=== PATIENT | female | born 1945 | race Hispanic/Latino ===

== ENCOUNTER 2021-01-05 09:37 | Inpatient (IN) | payer MEDICARE, OTHER ==
[2021-01-05] MEDS ORDERED: ONDANSETRON HCL INJ 2MG/ML 2ML 2 MG/ML VIAL ONE (10:41)
[2021-01-05] MEDS ORDERED: FENTANYL CITRATE/PF 100MCG/2 ML INJ ONE (10:41)
[2021-01-05] MEDS ORDERED: CEFTRIAXONE 1 GM VIAL ONE (11:27)
[2021-01-05] MEDS ORDERED: LACTATED RINGER'S 1,000 ML ONE (11:28)
[2021-01-05 11:29] LABS: HEMOGLOBIN 12.2 g/dL (12.0-16.0)
[2021-01-05 11:30] LABS: BASOPHILS % 0.3 % (0.0-1.0); EOSINOPHILS # (AUTO) 0.1 (0.0-0.4); EOSINOPHILS % 0.8 % (0.0-6.0); HEMATOCRIT 39.2 % (34.2-44.1); LYMPHOCYTES # (AUTO) 3.1 (1.0-3.2); LYMPHOCYTES % 26.4 % (18.0-39.1); MEAN CORPUSCULAR HEMOGLOBIN 29.8 pg (28-32); MEAN CORPUSCULAR HGB CONC 31.1 g/dL (31-35); MEAN CORPUSCULAR VOLUME 95.6 fL (81-99); MONOCYTES # (AUTO) 0.9 (0.2-0.8); MONOCYTES % 7.7 % (4.4-11.3); NEUTROPHILS # (AUTO) 7.4 (2.1-6.9); NEUTROPHILS % 64.2 % (38.7-80.0); PLATELET COUNT 277 x10e3/uL (140-360); RED CELL DISTRIBUTION WIDTH 13.7 % (11.7-14.4)
[2021-01-05 11:31] LABS: ANION GAP 15.3 mmol/L (8-16); CALCIUM 8.6 mg/dL (8.4-10.2); CREATININE, SERUM 0.56 mg/dL (0.57-1.11); POTASSIUM 4.3 mmol/L (3.5-5.1)
[2021-01-05 11:59] LABS: ALBUMIN 2.7 g/dL (3.5-5.0); ALBUMIN/GLOBULIN RATIO 0.7 (0.8-2.0)
[2021-01-05] MEDS ORDERED: ASPIRIN 81 MG CHEW TAB ONE (13:57)
[2021-01-05] MEDS ORDERED: ONDANSETRON HCL INJ 2MG/ML 2ML 2 MG/ML VIAL IV PRN ×2 (15:00→20:15)
[2021-01-05] MEDS: SODIUM CHLORIDE 0.9% 1000ML 1,000 ML IV SCH ×2 (15:06→23:40)
[2021-01-05] MEDS: MORPHINE SULFATE INJ 4 MG/ML INJ 1ML IV PRN (15:22)
[2021-01-05 19:20] VITALS: BP 134/82
[2021-01-05] MEDS ORDERED: KEPPRA500 MG PO (19:29)
[2021-01-05] MEDS ORDERED: ASCORBIC ACID500 M4 PO (19:29)
[2021-01-05] MEDS ORDERED: ASPIRIN CHEW81 MG PO (19:29)
[2021-01-05] MEDS ORDERED: VITAMIN C500 MG PO (19:29)
[2021-01-05] MEDS ORDERED: AMLODIPINE BESYL5 MG PO (19:29)
[2021-01-05] MEDS ORDERED: XANAX0.5 MG PO (19:29)
[2021-01-05] MEDS ORDERED: BACLOFEN10 MG PO (19:29)
[2021-01-05] MEDS ORDERED: FLOMAX0.4 MG PO (19:29)
[2021-01-05] MEDS ORDERED: VENLAFAXINE HCL75 M1 PO (19:29)
[2021-01-05] MEDS ORDERED: TYLENOL325 MG PO (19:29)
[2021-01-05] MEDS ORDERED: PANTOPRAZOLE SO40 MG PO (19:29)
[2021-01-05] MEDS ORDERED: NEURONTIN300 MG PO (19:29)
[2021-01-05] MEDS ORDERED: ZOFRAN4 MG PO (19:29)
[2021-01-05] MEDS ORDERED: SUCRALFATE1 GM PO (19:29)
[2021-01-05] MEDS ORDERED: ULTRAM50 MG PO (19:29)
[2021-01-05] MEDS ORDERED: ATORVASTATIN CA20 MG PO (19:29)
[2021-01-05] MEDS ORDERED: XANAX0.25 MG PO (19:29)
[2021-01-05] MEDS ORDERED: MULTI-VITAMIN1 EACH PO (19:29)
[2021-01-05 19:30] LABS: CLARITY,URINE HAZY (CLEAR); COLOR,URINE STRAW (YELLOW); KETONES,URINE NEGATIVE (NEGATIVE); LEUKOCYTE ESTERASE ,URINE LARGE (NEGATIVE); NITRITE,URINE NEGATIVE (NEGATIVE); PROTEIN,URINE DIPSTICK 1+ (NEGATIVE); URINE UROBILINOGEN 0.2 mg/dL (0.2 - 1)
[2021-01-05 19:49] LABS: AMORPHOUS SEDIMENT,URINE MODERATE (FEW); BACTERIA,URINE MANY /HPF
[2021-01-05 20:00] VITALS: BP 134/82
[2021-01-05] MEDS: GABAPENTIN 300 MG CAP PO SCH (21:01)
[2021-01-05] MEDS: ATORVASTATIN 20 MG TAB PO SCH (21:01)
[2021-01-05] MEDS: TRAMADOL HCL 50 MG TAB PO SCH (21:01)
[2021-01-05] MEDS: ALPRAZOLAM 0.5 MG TAB PO PRN (21:33)
[2021-01-05] MEDS ORDERED: ALPRAZOLAM 0.5 MG TAB PO SCH (22:00)
[2021-01-05 23:40] VITALS: BP 134/82
[2021-01-06] VITALS (8 sets, daily range): BP systolic 92–132; BP diastolic 42–65
[2021-01-06] MEDS: MORPHINE SULFATE INJ 4 MG/ML INJ 1ML IV PRN (00:36)
[2021-01-06] MEDS: TRAMADOL HCL 50 MG TAB PO SCH ×6 (01:15→20:12)
[2021-01-06] MEDS: SODIUM CHLORIDE 0.9% 1000ML 1,000 ML IV SCH ×3 (05:11→21:30)
[2021-01-06] MEDS: ALPRAZOLAM 0.5 MG TAB PO PRN (05:30)
[2021-01-06 05:55] LABS: BASOPHILS % 0.2 % (0.0-1.0); EOSINOPHILS % 0.2 % (0.0-6.0); HEMATOCRIT 30.1 % (34.2-44.1); HEMOGLOBIN 9.6 g/dL (12.0-16.0); LYMPHOCYTES # (AUTO) 2.7 (1.0-3.2); LYMPHOCYTES % 22.4 % (18.0-39.1); MEAN CORPUSCULAR HEMOGLOBIN 30.4 pg (28-32); MEAN CORPUSCULAR HGB CONC 31.9 g/dL (31-35); MEAN CORPUSCULAR VOLUME 95.3 fL (81-99); MONOCYTES # (AUTO) 1.3 (0.2-0.8); MONOCYTES % 10.3 % (4.4-11.3); NEUTROPHILS # (AUTO) 8.2 (2.1-6.9); NEUTROPHILS % 66.5 % (38.7-80.0); PLATELET COUNT 240 x10e3/uL (140-360); RED BLOOD COUNT 3.16 x10e6/uL (3.6-5.1); RED CELL DISTRIBUTION WIDTH 13.8 % (11.7-14.4)
[2021-01-06] MEDS ORDERED: HYDROCODONE/APAP 5MG-325MG TAB PO PRN (06:00)
[2021-01-06] MEDS: PHENAZOPYRIDINE HCL 100 MG TAB PO SCH ×3 (06:17→20:12)
[2021-01-06 06:33] LABS: ANION GAP 10.2 mmol/L (8-16); CREATININE, SERUM 0.5 mg/dL (0.57-1.11); POTASSIUM 3.2 mmol/L (3.5-5.1)
[2021-01-06 06:53] LABS: CHOL/HDL RATIO 2.8 (3.0-3.6)
[2021-01-06] MEDS: AMLODIPINE BESYLATE 5 MG TAB PO SCH (09:00)
[2021-01-06] MEDS: LEVETIRACETAM 500 MG TAB PO SCH ×2 (09:20→16:58)
[2021-01-06] MEDS: GABAPENTIN 300 MG CAP PO SCH ×3 (09:20→20:11)
[2021-01-06] MEDS: TAMSULOSIN HCL 0.4 MG CAP PO SCH (09:20)
[2021-01-06] MEDS: SUCRALFATE 1 GM TAB PO SCH ×2 (09:20→16:58)
[2021-01-06] MEDS: ALPRAZOLAM 0.25 MG TAB PO SCH ×2 (09:20→16:58)
[2021-01-06] MEDS: BACLOFEN 10 MG TAB PO SCH ×2 (09:20→16:58)
[2021-01-06] MEDS: PANTOPRAZOLE SOD 40 MG TABEC PO SCH (09:20)
[2021-01-06] MEDS: ASPIRIN 81 MG CHEW TAB PO SCH (09:20)
[2021-01-06] MEDS: VENLAFAXINE HCL 75 MG CAPCR PO SCH (09:21)
[2021-01-06] MEDS: CEFTRIAXONE 1 GM in SODIUM CHLORIDE 0.9% 50ML 50 ML IV SCH (09:29)
[2021-01-06] MEDS ORDERED: POTASSIUM CHLORIDE 20 MEQ TAB CR PO ONE (09:30)
[2021-01-06] MEDS: ATORVASTATIN 20 MG TAB PO SCH (20:11)
[2021-01-07] VITALS (9 sets, daily range): BP systolic 101–133; BP diastolic 57–73
[2021-01-07] MEDS: TRAMADOL HCL 50 MG TAB PO SCH ×6 (02:00→21:23)
[2021-01-07] MEDS: SODIUM CHLORIDE 0.9% 1000ML 1,000 ML IV SCH ×3 (05:49→19:30)
[2021-01-07 06:21] LABS: BASOPHILS % 0.4 % (0.0-1.0); EOSINOPHILS # (AUTO) 0.1 (0.0-0.4); EOSINOPHILS % 1.2 % (0.0-6.0); HEMATOCRIT 30.4 % (34.2-44.1); HEMOGLOBIN 9.2 g/dL (12.0-16.0); LYMPHOCYTES # (AUTO) 3.8 (1.0-3.2); LYMPHOCYTES % 35.1 % (18.0-39.1); MEAN CORPUSCULAR HEMOGLOBIN 29.1 pg (28-32); MEAN CORPUSCULAR HGB CONC 30.3 g/dL (31-35); MEAN CORPUSCULAR VOLUME 96.2 fL (81-99); MONOCYTES # (AUTO) 1.2 (0.2-0.8); MONOCYTES % 10.7 % (4.4-11.3); NEUTROPHILS # (AUTO) 5.6 (2.1-6.9); NEUTROPHILS % 52.1 % (38.7-80.0); PLATELET COUNT 239 x10e3/uL (140-360); RED BLOOD COUNT 3.16 x10e6/uL (3.6-5.1); RED CELL DISTRIBUTION WIDTH 13.8 % (11.7-14.4)
[2021-01-07 06:44] LABS: ALBUMIN 2.1 g/dL (3.5-5.0); ALBUMIN/GLOBULIN RATIO 0.6 (0.8-2.0); ANION GAP 9.5 mmol/L (8-16); CALCIUM 8.1 mg/dL (8.4-10.2); CREATININE, SERUM 0.48 mg/dL (0.57-1.11); POTASSIUM 3.5 mmol/L (3.5-5.1)
[2021-01-07] MEDS: LEVETIRACETAM 500 MG TAB PO SCH ×2 (09:21→17:59)
[2021-01-07] MEDS: TAMSULOSIN HCL 0.4 MG CAP PO SCH (09:21)
[2021-01-07] MEDS: VENLAFAXINE HCL 75 MG CAPCR PO SCH (09:21)
[2021-01-07] MEDS: PANTOPRAZOLE SOD 40 MG TABEC PO SCH (09:21)
[2021-01-07] MEDS: AMLODIPINE BESYLATE 5 MG TAB PO SCH (09:21)
[2021-01-07] MEDS: BACLOFEN 10 MG TAB PO SCH ×2 (09:21→17:59)
[2021-01-07] MEDS: ALPRAZOLAM 0.25 MG TAB PO SCH ×2 (09:21→17:59)
[2021-01-07] MEDS: ASPIRIN 81 MG CHEW TAB PO SCH (09:21)
[2021-01-07] MEDS: PHENAZOPYRIDINE HCL 100 MG TAB PO SCH ×3 (09:21→21:00)
[2021-01-07] MEDS: SUCRALFATE 1 GM TAB PO SCH ×2 (09:21→17:59)
[2021-01-07] MEDS: CEFTRIAXONE 1 GM in SODIUM CHLORIDE 0.9% 50ML 50 ML IV SCH (09:21)
[2021-01-07] MEDS: GABAPENTIN 300 MG CAP PO SCH ×3 (09:21→21:00)
[2021-01-07] MEDS ORDERED: PYRIDIUM100 MG PO (16:09)
[2021-01-07] MEDS ORDERED: MEROPENEM1 GM IV (16:09)
[2021-01-07] MEDS: MEROPENEM 1 GM in SODIUM CHLORIDE 0.9% 100 ML IV SCH (17:58)
[2021-01-07] MEDS: ATORVASTATIN 20 MG TAB PO SCH (21:00)
[2021-01-08] VITALS (7 sets, daily range): BP systolic 116–190; BP diastolic 70–92
[2021-01-08] MEDS: TRAMADOL HCL 50 MG TAB PO SCH ×4 (01:58→14:00)
[2021-01-08] MEDS: SODIUM CHLORIDE 0.9% 1000ML 1,000 ML IV SCH (03:12)
[2021-01-08] MEDS: MEROPENEM 1 GM in SODIUM CHLORIDE 0.9% 100 ML IV SCH ×2 (03:58→15:19)
[2021-01-08 05:46] LABS: BASOPHILS % 0.5 % (0.0-1.0); EOSINOPHILS # (AUTO) 0.2 (0.0-0.4); HEMATOCRIT 31.1 % (34.2-44.1); HEMOGLOBIN 9.7 g/dL (12.0-16.0); LYMPHOCYTES # (AUTO) 2.9 (1.0-3.2); LYMPHOCYTES % 35.5 % (18.0-39.1); MEAN CORPUSCULAR HEMOGLOBIN 29.8 pg (28-32); MEAN CORPUSCULAR HGB CONC 31.2 g/dL (31-35); MEAN CORPUSCULAR VOLUME 95.4 fL (81-99); MONOCYTES # (AUTO) 0.7 (0.2-0.8); NEUTROPHILS # (AUTO) 4.2 (2.1-6.9); NEUTROPHILS % 51.6 % (38.7-80.0); PLATELET COUNT 240 x10e3/uL (140-360); RED BLOOD COUNT 3.26 x10e6/uL (3.6-5.1); RED CELL DISTRIBUTION WIDTH 13.3 % (11.7-14.4)
[2021-01-08 06:12] LABS: ANION GAP 8.2 mmol/L (8-16); CALCIUM 7.7 mg/dL (8.4-10.2); CREATININE, SERUM 0.53 mg/dL (0.57-1.11); MAGNESIUM 1.5 MG/DL (1.3-2.1); POTASSIUM 3.2 mmol/L (3.5-5.1)
[2021-01-08 07:53] LABS: INR 0.95; PROTHROMBIN TIME 13.3 seconds (11.9-14.5)
[2021-01-08] MEDS ORDERED: POTASSIUM CHLORIDE 20 MEQ TAB CR PO ONE (08:40)
[2021-01-08] MEDS: ASPIRIN 81 MG CHEW TAB PO SCH (09:00)
[2021-01-08] MEDS: SUCRALFATE 1 GM TAB PO SCH (09:27)
[2021-01-08] MEDS: TAMSULOSIN HCL 0.4 MG CAP PO SCH (09:27)
[2021-01-08] MEDS: VENLAFAXINE HCL 75 MG CAPCR PO SCH (09:27)
[2021-01-08] MEDS: LEVETIRACETAM 500 MG TAB PO SCH (09:28)
[2021-01-08] MEDS: BACLOFEN 10 MG TAB PO SCH (09:29)
[2021-01-08] MEDS: PHENAZOPYRIDINE HCL 100 MG TAB PO SCH ×2 (09:29→15:19)
[2021-01-08] MEDS: GABAPENTIN 300 MG CAP PO SCH ×2 (09:29→15:19)
[2021-01-08] MEDS: PANTOPRAZOLE SOD 40 MG TABEC PO SCH (09:29)
[2021-01-08] MEDS: AMLODIPINE BESYLATE 5 MG TAB PO SCH (09:29)
[2021-01-08] MEDS: ALPRAZOLAM 0.25 MG TAB PO SCH (09:30)
[2021-01-08] MEDS ORDERED: LIDOCAINE HCL 1% LOCAL INJ 20 ML VIAL ONE (12:06)
[2021-01-08] MEDS ORDERED: MIDAZOLAM HCL 2 MG/2 ML VIAL ONE (12:15)
[2021-01-08] MEDS ORDERED: HEPARIN SOD (PORCINE) 1000 UNIT/ML SDV ONE (12:16)
[2021-01-08] MEDS ORDERED: CEFAZOLIN SOD 1 GM/NS 50ML 50 ML IV ONE (12:16)
[2021-01-08] MEDS ORDERED: FENTANYL CITRATE/PF 100MCG/2 ML INJ ONE (12:16)
[2021-01-08] MEDS ORDERED: MORPHINE SULFATE INJ 2 MG/ML SYR IV ONE (13:00)
[2021-01-08] MEDS ORDERED: SODIUM CHLORIDE 0.9% 250ML 250 ML ONE (14:19)
== END 2021-01-08 16:10 | DRG 698 ==
LOC: ER 10:08 → MED/SURG3 19:04 → OBSVTOIN 01-06 09:57
PROVIDERS: ADMIT Internal Medicine; ATTEND Internal Medicine
PROC: 02HV33Z Insertion of Infusion Device into Superior Vena Cava, Percutaneous Approach (ICD-10-PCS; principal; 2021-01-07)
PROC: 02HV33Z Insertion of Infusion Device into Superior Vena Cava, Percutaneous Approach (ICD-10-PCS; 2021-01-07)
PROC: 0JH63XZ Insertion of Tunneled Vascular Access Device into Chest Subcutaneous Tissue and Fascia, Percutaneous Approach (ICD-10-PCS; 2021-01-07)
DX: T83.511A Infection and inflammatory reaction due to indwelling urethral catheter, initial encounter (principal); A41.9 Sepsis, unspecified organism; N30.00 Acute cystitis without hematuria; E11.9 Type 2 diabetes mellitus without complications; I10 Essential (primary) hypertension; I69.398 Other sequelae of cerebral infarction; E78.5 Hyperlipidemia, unspecified; G40.909 Epilepsy, unspecified, not intractable, without status epilepticus; Z74.01 Bed confinement status; Z20.822 Contact with and (suspected) exposure to COVID-19
CPT/HCPCS: 36415; 36558; 36569; 71045; 74176; 74470; 76937; 77001; 80048; 80053; 80061; 81001; 82948; 83690; 83735; 84484; 85025; 85610; 87086; 87186; 93005; 99251; 99284; G0378; J0690; J0696; J1644; J2001; J2185; J2250; J2270; J2405; J3010; J7030; J7050; J7121; U0002

== ENCOUNTER → 2021-02-26 | Outpatient (CLI) | payer MEDICARE ==
[~2021-02-26] MED LIST: AMLODIPINE BESYL5 MG PO; ASCORBIC ACID500 M4 PO; ASPIRIN CHEW81 MG PO; ATORVASTATIN CA20 MG PO; BACLOFEN10 MG PO; FLOMAX0.4 MG PO; KEPPRA500 MG PO; MEROPENEM1 GM IV; MULTI-VITAMIN1 EACH PO; NEURONTIN300 MG PO; PANTOPRAZOLE SO40 MG PO; PYRIDIUM100 MG PO; SUCRALFATE1 GM PO; TYLENOL325 MG PO; ULTRAM50 MG PO; VENLAFAXINE HCL75 M1 PO; VITAMIN C500 MG PO; XANAX0.25 MG PO; XANAX0.5 MG PO; ZOFRAN4 MG PO
== END ==
LOC: DX 13:11
DX: Z45.2 Encounter for adjustment and management of vascular access device (principal); Z87.440 Personal history of urinary (tract) infections; I69.354 Hemiplegia and hemiparesis following cerebral infarction affecting left non-dominant side; Z86.718 Personal history of other venous thrombosis and embolism; Z79.01 Long term (current) use of anticoagulants; E11.40 Type 2 diabetes mellitus with diabetic neuropathy, unspecified; F31.9 Bipolar disorder, unspecified; G40.909 Epilepsy, unspecified, not intractable, without status epilepticus; Z86.74 Personal history of sudden cardiac arrest; E78.5 Hyperlipidemia, unspecified; K21.9 Gastro-esophageal reflux disease without esophagitis; I10 Essential (primary) hypertension
CPT/HCPCS: 36589; 71045

== ENCOUNTER 2021-05-05 11:23 | Emergency (ER) | payer MEDICARE ==
[~2021-05-05] VITALS: Ht 160 cm; Wt 61.7 kg
[2021-05-05] MEDS ORDERED: HYDROCODONE/APAP 5MG-325MG TAB PO ONE (14:15)
== END 2021-05-05 17:10 ==
LOC: ER 12:00
DX: M79.605 Pain in left leg (principal); M79.604 Pain in right leg; G89.29 Other chronic pain; E11.9 Type 2 diabetes mellitus without complications; K21.9 Gastro-esophageal reflux disease without esophagitis; F41.9 Anxiety disorder, unspecified; M24.59 Contracture, other specified joint; Z86.73 Personal history of transient ischemic attack (TIA), and cerebral infarction without residual deficits
CPT/HCPCS: 71045; 93970; 99283